=== PATIENT | female | born 1975 | race African-American/Black ===

== ENCOUNTER 2021-07-17 08:24 | Emergency (ER) | payer MEDICAID ==
[~2021-07-17] VITALS: Ht 172.7 cm; Wt 65.0 kg
[2021-07-17] MEDS ORDERED: SODIUM CHLORIDE 0.9% 1,000 ML IV ONE (08:30)
[2021-07-17 09:44] LABS: BASOPHILS % 0.8 % (0.0-2.0); EOSINOPHILS % 1.8 % (0.0-5.0); HEMATOCRIT. 37.5 % (36.0-48.0); HEMOGLOBIN. 12.2 g/dL (12.0-16.0); LYMPHOCYTES % 19.5 % (20.0-50.0); MEAN CORPUSCULAR HEMOGLOBIN 28.6 pg (28.0-32.0); MEAN CORPUSCULAR VOLUME 87.9 fL (81.0-99.0); MEAN PLATELET VOLUME 8.1 fl (7.4-10.4); MONOCYTES % 6.9 % (2.0-8.0); PLATELET 632 x1000/uL (130-400); RED BLOOD CELL COUNT 4.26 mill/uL (4.2-5.4); RED CELL DISTRIBUTION WIDTH 14.7 % (11.6-14.6)
[2021-07-17 09:47] LABS: CHLORIDE 105 mEq/L (98-107)
[2021-07-17 09:54] LABS: BETA HYDROXYBUTYRATE 3.4 mMol/L (0.0-0.3)
[2021-07-17] MEDS ORDERED: LACTATED RINGERS 1,000 ML IV STA (10:43)
[2021-07-17] MEDS ORDERED: INSULIN REGULAR (HUMULIN R) 300UNITS/3ML VIAL SUBCUT ONE (10:45)
[2021-07-17] MEDS ORDERED: MORPHINE SULFATE 2 MG/ML CPJ (NOT FOR IM USE) IV ONE (10:45)
[2021-07-17] MEDS ORDERED: ONDANSETRON HCL 4MG/2ML INJ IV ONE (10:45)
[2021-07-17 10:55] LABS: CLARITY URINE CLEAR (CLEAR); COLOR URINE YELLOW (YELLOW); KETONES URINE 3+ (NEGATIVE); LEUKOCYTE ESTERASE URINE NEGATIVE (NEGATIVE); NITRITE URINE POSITIVE (NEGATIVE); OCCULT BLOOD URINE TRACE (NEGATIVE); PROTEIN URINE 3+ (NEGATIVE); SPECIFIC GRAVITY URINE 1.023 (1.005-1.030); UROBILINOGEN URINE 0.2 E.U./dL (0.2-1.0)
[2021-07-17] MEDS ORDERED: CEFTRIAXONE 1 G PREMIX 50 ML IV ONE (11:15)
[2021-07-17] MEDS ORDERED: CEPH500C2 MT (12:13)
[2021-07-17 13:09] VITALS: BP 142/84
== END 2021-07-17 13:11 | disposition home or self-care (01) ==
LOC: ER 08:39
DX: N39.0 Urinary tract infection, site not specified (principal); E11.65 Type 2 diabetes mellitus with hyperglycemia; Z79.4 Long term (current) use of insulin; Z88.8 Allergy status to other drugs, medicaments and biological substances
CPT/HCPCS: 36415; 71045; 80053; 81003; 82010; 82962; 83690; 85025; 96361; 96372; 96374; 96375; 99284; J0696; J1815; J2270; J2405; J7030; J7120

== ENCOUNTER 2022-06-30 09:40 | Inpatient (IN) | payer MEDICAID ==
[~2022-06-30] VITALS: Ht 154.9 cm; Wt 54.0 kg
[~2022-06-30 09:40] MED LIST: CEPH500C2 MT
[2022-06-30] MEDS ORDERED: SODIUM CHLORIDE 0.9% 1,000 ML IV ONE ×2 (10:00→11:30)
[2022-06-30 10:23] LABS: BG BASE EXCESS -21.2 mmol/L (-2.0-2.0); BG CARBOXYHEMOGLOBIN 0.5 % (0.5-1.5); BG DEOXYHEMOGLOBIN 2.6 % (0.0-5.0); BG HCO3 ACT 6.1 mmol/L (22.0-26.0); BG METHEMOGLOBIN 0.3 % (0.0-1.5); BG OXYGEN SATURATION 97.4 % (92.0-98.5); BG OXYHEMOGLOBIN 96.6 % (94.0-97.0); BG PCO2 18.7 mmHg (35.0-45.0); BG PH 7.128 (7.350-7.450); BG PO2 107.3 mmHg (75.0-100.0); BG SAMPLE SITE RIGHT BRACHIAL; BG TOTAL HEMOGLOBIN 12.7 g/dL (12.0-18.0); BG VENT MODE ROOM AIR
[2022-06-30 10:34] LABS: BASOPHILS % 0.7 % (0.0-2.0); EOSINOPHILS % 0.1 % (0.0-5.0); HEMATOCRIT. 38.6 % (36.0-48.0); HEMOGLOBIN. 11.9 g/dL (12.0-16.0); LYMPHOCYTES % 10.4 % (20.0-50.0); MEAN CORPUSCULAR HEMOGLOBIN 29.3 pg (28.0-32.0); MEAN CORPUSCULAR VOLUME 94.9 fL (81.0-99.0); MEAN PLATELET VOLUME 8.6 fl (7.4-10.4); MONOCYTES % 3.7 % (2.0-8.0); NEUTROPHILS % 85.1 % (40.0-76.0); PLATELET 553 x1000/uL (130-400); RED BLOOD CELL COUNT 4.07 mill/uL (4.2-5.4)
[2022-06-30 10:43] LABS: CHLORIDE 100 mEq/L (98-107)
[2022-06-30 10:53] LABS: BETA HYDROXYBUTYRATE 8.5 mMol/L (0.0-0.3)
[2022-06-30 11:05] LABS: HCG SCREEN NEGATIVE
[2022-06-30] MEDS ORDERED: INSULIN REGULAR 100U/100ML PMX 100 ML IV SCH (11:15)
[2022-06-30] MEDS ORDERED: MORPHINE SULFATE 4 MG/ML CPJ (NOT FOR IM USE) IV ONE (11:45)
[2022-06-30] MEDS: INSULIN REGULAR 100U/100ML PMX 100 ML IV SCH (11:46)
[2022-06-30 13:09] LABS: CLARITY URINE CLEAR (CLEAR); COLOR URINE YELLOW (YELLOW); KETONES URINE 3+ (NEGATIVE); LEUKOCYTE ESTERASE URINE NEGATIVE (NEGATIVE); NITRITE URINE NEGATIVE (NEGATIVE); OCCULT BLOOD URINE 1+ (NEGATIVE); PH URINE 5.5 (4.5-8.0); PROTEIN URINE 3+ (NEGATIVE); UROBILINOGEN URINE 0.2 E.U./dL (0.2-1.0)
[2022-06-30] MEDS ORDERED: DOCUSATE SODIUM 100MG CAPSULE PO PRN (15:30)
[2022-06-30] MEDS: IPRATROPIUM/ALBUTEROL 0.5-3(2.5)MG/3ML NEB HHN SCH (15:30)
[2022-06-30] MEDS ORDERED: CLONIDINE 0.1MG TABLET PO PRN (15:30)
[2022-06-30] MEDS ORDERED: ACETAMINOPHEN 325MG TABLET PO PRN ×2 (15:30)
[2022-06-30] MEDS ORDERED: SODIUM CHLORIDE 0.45% 1,000 ML IV ONE (15:30)
[2022-06-30] MEDS ORDERED: GUAIFENESIN 200MG/10ML SUGAR FREE UDC PO PRN (15:30)
[2022-06-30] MEDS ORDERED: KCL 20MEQ/100ML PREMIX 100 ML IV NR (15:45)
[2022-06-30] MEDS ORDERED: ENOXAPARIN 30MG/0.3ML SYR SUBCUT SCH (16:00)
[2022-06-30 17:13] LABS: PHOSPHORUS 5.4 mg/dL (2.5-4.9); T4 FREE 0.87 ng/dL (0.76-1.46)
[2022-06-30 17:37] LABS: VITAMIN B12 SERUM 713 pg/mL (211-911)
[2022-06-30 17:43] LABS: FOLIC ACID (FOLATE) SERUM > 20.00 ng/mL (>5.38)
[2022-06-30 18:57] LABS: TOTAL IRON BINDING CAPACITY 175 ug/dL (250-450)
[2022-06-30] MEDS ORDERED: DEXTROSE 50% WATER 50ML SYRINGE IV ONE (20:57)
[2022-06-30] MEDS ORDERED: DEXT 5%/0.9% NACL 1,000 ML IV ONE (21:15)
[2022-06-30] MEDS: PANTOPRAZOLE 40MG DR TABLET PO SCH (21:44)
[2022-07-01] MEDS: IPRATROPIUM/ALBUTEROL 0.5-3(2.5)MG/3ML NEB HHN SCH ×3 (03:30→14:42)
[2022-07-01 05:20] LABS: BASOPHILS % 0.4 % (0.0-2.0); EOSINOPHILS % 1.1 % (0.0-5.0); HEMATOCRIT. 32.2 % (36.0-48.0); HEMOGLOBIN. 10.7 g/dL (12.0-16.0); LYMPHOCYTES % 20.9 % (20.0-50.0); MEAN CORPUSCULAR HEMOGLOBIN 29.5 pg (28.0-32.0); MEAN PLATELET VOLUME 7.5 fl (7.4-10.4); MONOCYTES % 7.6 % (2.0-8.0); PLATELET 434 x1000/uL (130-400); RED BLOOD CELL COUNT 3.61 mill/uL (4.2-5.4); RED CELL DISTRIBUTION WIDTH 14.5 % (11.6-14.6)
[2022-07-01] MEDS: HYDROCODONE/ACETAMINOPHEN 5/325MG TABLET PO PRN ×3 (05:23→22:22)
[2022-07-01] MEDS: PANTOPRAZOLE 40MG DR TABLET PO SCH ×2 (06:30→22:10)
[2022-07-01] MEDS: INSULIN REGULAR 100U/100ML PMX 100 ML IV SCH (07:30)
[2022-07-01] MEDS ORDERED: NALOXONE HCL 0.4MG/ML VIAL IV PRN (10:30)
[2022-07-01] MEDS: GABAPENTIN 100MG CAPSULE PO SCH ×2 (13:09→22:10)
[2022-07-01] MEDS ORDERED: DEXTROSE 50% WATER 50ML SYRINGE IV PRN (16:00)
[2022-07-01] MEDS ORDERED: ENOXAPARIN 40MG/0.4ML SYR SUBCUT SCH (16:00)
[2022-07-01] MEDS ORDERED: SODIUM CHLORIDE 0.45% 1,000 ML IV ONE (16:00)
[2022-07-01] MEDS: BLOOD SUGAR DIAGNOSTIC STRIP TEST SCH ×2 (17:08→20:27)
[2022-07-01] MEDS: INSULIN LISPRO 100 UNITS/ML SUBCUT SCH ×2 (17:13→22:10)
[2022-07-01 19:00] VITALS: BP 133/77
[2022-07-01 20:00] VITALS: BP 122/69
[2022-07-01] MEDS ORDERED: INSULIN GLARGINE 100 UNITS/ML SUBCUT SCH (22:00)
[2022-07-02] VITALS: BP 116/66
[2022-07-02] MEDS: IPRATROPIUM/ALBUTEROL 0.5-3(2.5)MG/3ML NEB HHN SCH ×2 (01:55→07:34)
[2022-07-02 05:13] VITALS: BP 121/75
[2022-07-02] MEDS: GABAPENTIN 100MG CAPSULE PO SCH ×2 (05:32→13:30)
[2022-07-02] MEDS: HYDROCODONE/ACETAMINOPHEN 5/325MG TABLET PO PRN (05:33)
[2022-07-02] MEDS: PANTOPRAZOLE 40MG DR TABLET PO SCH (06:00)
[2022-07-02] MEDS: BLOOD SUGAR DIAGNOSTIC STRIP TEST SCH ×2 (06:11→12:26)
[2022-07-02 06:18] LABS: HEMATOCRIT 29.9 % (36.0-48.0); MEAN CORPUSCULAR HEMOGLOBIN 29.1 pg (28.0-32.0); MEAN CORPUSCULAR VOLUME 86.9 fL (81.0-99.0); PLATELET 370 x1000/uL (130-400); RED BLOOD CELL COUNT 3.43 mill/uL (4.2-5.4); RED CELL DISTRIBUTION WIDTH 14.6 % (11.6-14.6)
[2022-07-02 08:00] VITALS: BP 109/67
[2022-07-02] MEDS ORDERED: GABA-529 PO (08:36)
[2022-07-02] MEDS ORDERED: INSU100I24 SUBCUT (08:38)
[2022-07-02] MEDS: INSULIN LISPRO 100 UNITS/ML SUBCUT SCH ×2 (08:57→12:20)
[2022-07-02 10:04] VITALS: BP 109/67
[2022-07-02 12:00] VITALS: BP 148/63
[2022-07-03] MEDS ORDERED: FAMOTIDINE 20MG TABLET PO SCH (09:00)
== END 2022-07-02 13:40 | disposition home or self-care (01) | DRG 420 ==
LOC: ER 09:40 → EDBEDREQ 12:54 → EDBEDREQSVC 12:54 → EDBEDREQTM 12:54 → EDBEDREQSVC 13:31 → MICUSO 13:31 → EDBEDREQ 13:41 → 3WST 07-01 19:07
PROVIDERS: ADMIT Internal Medicine; ATTEND Internal Medicine
DX: E10.10 Type 1 diabetes mellitus with ketoacidosis without coma (principal); N17.0 Acute kidney failure with tubular necrosis; E46 Unspecified protein-calorie malnutrition; Z20.822 Contact with and (suspected) exposure to COVID-19; D64.9 Anemia, unspecified; Z68.22 Body mass index [BMI] 22.0-22.9, adult; Z79.4 Long term (current) use of insulin; Z79.899 Other long term (current) drug therapy; Z88.8 Allergy status to other drugs, medicaments and biological substances; T38.3X6A Underdosing of insulin and oral hypoglycemic [antidiabetic] drugs, initial encounter
CPT/HCPCS: 36415; 36600; 71045; 80048; 80053; 81003; 82010; 82375; 82607; 82746; 82805; 82962; 83036; 83540; 83550; 83735; 84100; 84439; 84443; 84484; 84703; 85025; 85027; 87426; 93005; 94640; 99291; C9803; J1650; J1815; J2270; J3480; J7030; J7042

== ENCOUNTER 2022-10-04 16:13 | Emergency (ER) | payer MEDICAID ==
[~2022-10-04] VITALS: Ht 154.9 cm; Wt 53.0 kg
[~2022-10-04 16:13] MED LIST changes: +GABA-529 PO; +INSU100I24 SUBCUT
[2022-10-04 18:00] LABS: BASOPHILS % 0.9 % (0.0-2.0); EOSINOPHILS % 1.5 % (0.0-5.0); LYMPHOCYTES % 29.9 % (20.0-50.0); MEAN CORPUSCULAR HEMOGLOBIN 29.9 pg (28.0-32.0); MEAN CORPUSCULAR VOLUME 92.3 fL (81.0-99.0); MEAN PLATELET VOLUME 7.5 fl (7.4-10.4); MONOCYTES % 7.3 % (2.0-8.0); NEUTROPHILS % 60.4 % (40.0-76.0); PLATELET 575 x1000/uL (130-400); RED BLOOD CELL COUNT 4.01 mill/uL (4.2-5.4); RED CELL DISTRIBUTION WIDTH 14.7 % (11.6-14.6)
[2022-10-04 18:16] LABS: CHLORIDE 110 mEq/L (98-107)
[2022-10-04 18:28] LABS: HCG SCREEN NEGATIVE
[2022-10-04 18:29] LABS: CLARITY URINE CLEAR (CLEAR); COLOR URINE DARK YELLOW (YELLOW); KETONES URINE 1+ (NEGATIVE); LEUKOCYTE ESTERASE URINE 1+ (NEGATIVE); NITRITE URINE POSITIVE (NEGATIVE); OCCULT BLOOD URINE NEGATIVE (NEGATIVE); PH URINE 6.5 (4.5-8.0); PROTEIN URINE 4+ (NEGATIVE); SPECIFIC GRAVITY URINE 1.019 (1.005-1.030)
[2022-10-04] MEDS ORDERED: KETOROLAC 30MG/ML VIAL IV STA (22:32)
[2022-10-04] MEDS ORDERED: ONDANSETRON HCL 4MG/2ML INJ IV STA (22:32)
[2022-10-04] MEDS ORDERED: SODIUM CHLORIDE 0.9% 1,000 ML IV ONE (22:45)
[2022-10-05] MEDS ORDERED: CEFTRIAXONE 1GM PREMIX 50 ML IV ONE (00:15)
[2022-10-05] MEDS ORDERED: CEPH500C2 MT (00:18)
[2022-10-05] MEDS ORDERED: PHEN-815 MT (00:19)
[2022-10-05 00:46] VITALS: BP 133/75
== END 2022-10-05 01:00 | disposition home or self-care (01) ==
LOC: ER 16:13
DX: N30.90 Cystitis, unspecified without hematuria (principal); F12.10 Cannabis abuse, uncomplicated; E11.9 Type 2 diabetes mellitus without complications; Z98.890 Other specified postprocedural states
CPT/HCPCS: 36415; 80053; 81003; 84703; 85025; 96361; 96365; 96375; 99285; J0696; J1885; J2405; J7030